=== PATIENT | female | born 1980 | race Caucasian/White ===

== ENCOUNTER → 2020-07-06 | Outpatient (CLI) | payer BC ==
--- NOTE | 2020-07-06 16:09 | RAD ---
DATE: 07/06/2020 1:44 PM EXAM: MAMMO DAVIDDiandra GROSSMAN, BREAST LEFT HISTORY: 39-year-old woman with history of palpable lump in the upper inner left breast since resolved but with reported palpable area of concern in the lateral left breast on clinical exam by her referring physician. COMPARISON: None. This will be a baseline. Bilateral CC and MLO views of the breasts were performed. Bilateral breast tomosynthesis was performed in CC and MLO projections. This study was interpreted with the benefit of Computerized Aided Detection (CAD). Targeted ultrasound of the lateral left breast was also performed FINDINGS: Breast Density: SCATTERED The breast parenchyma shows scattered fibroglandular densities. Breast parenchyma level B No suspicious masses, microcalcifications or architectural distortion is present to suggest malignancy in either breast on mammography. No potential mammographic correlate to patient's reported area of concern along the lateral left breast. Since she was not able to specifically identify the area of concern, no marking was made at the skin surface. The visualized axillae are unremarkable. Targeted ultrasound of the left breast along the 3:00 axis but spanning L1-4 o'clock positions from 2 cm through 10 cm from the nipple was performed and showed fatty breast tissue with no suspicious sonographic findings. IMPRESSION: No evidence of malignancy. No sonographic correlate to the area of reported palpable clinical concern. BI-RADS CATEGORY: 1 NEGATIVE RECOMMENDED FOLLOW-UP: 12M 12 MONTH FOLLOW-UP Annual screening mammography is recommended, unless clinically indicated sooner based on symptoms or change in physical exam. Recommend clinical management of any areas of palpable concern including biopsy of any clinically suspicious findings if present. In the absence of a clinically suspicious finding, routine annual mammographic screening next due in one year is recommended. PQRS compliance statement: Patient information was entered into a reminder system with a target due date for the next mammogram. Mammography is a sensitive method for finding small breast cancers, but it does not detect them all and is not a substitute for careful clinical examination. A negative mammogram does not negate a clinically suspicious finding and should not result in delay in biopsying a clinically suspicious abnormality. "Our facility is accredited by the [employer] Mammography Program."
== END | disposition home or self-care (01) ==
LOC: MAMMO 13:22
PROVIDERS: ATTEND Obstetrics & Gynecology
DX: R92.8 Other abnormal and inconclusive findings on diagnostic imaging of breast (principal); N63.20 Unspecified lump in the left breast, unspecified quadrant
CPT/HCPCS: 76641; 77066; G0279; 77062